=== PATIENT | male | born 1950 | race Caucasian/White ===

== ENCOUNTER 2018-03-07 11:13 | Outpatient (CLI) | payer MEDICARE ==
[~2018-03-07 11:13] MED LIST: Iopamidol 370 76% 100 ML VIAL ONE
--- NOTE | 2018-03-07 14:34 | CT ---
ABDOMEN CT WITH AND WITHOUT CONTRAST PELVIC CT WITH AND WITHOUT CONTRAST: Date: 03/07/18 HISTORY: Abdominal aortic aneurysm, without rupture. Follow-up exam. COMPARISON: 08/22/15. TECHNIQUE: CT angiogram of the abdominal aorta is performed with and without contrast. Sagittal and coronal refo rmatted images are submitted for interpretation. FINDINGS: ABDOMEN CT: Lung bases are clear. Normal heart size. No pericardial fluid. There is appropriate arterial phase enhancement of the liver, spleen, pancreas, and right adrenal gla nds. There is fullness of the left adrenal gland, similar to the previous examination. There appears to be a nodular associated with the left adrenal gland measuring 1.5 cm with an attenuation coefficie nt of -3 Hounsfield units. Benign adenoma is favored. Symmetric enhancement of the kidneys. Bilaterally, no obstructive uropathy. No mesenteric mass, lymphadenopathy, free air, or free fluid. No gastrohepatic, retrocrural, or perip ortal lymphadenopathy. Limited evaluation of the alimentary canal by the lack of oral contrast. No evidence of bowel obstruc tion. Ileocecal junction is normal. Normal caliber appendix. Scattered fecal material in a nondistend ed, nondilated colon. Occasional diverticulum. No diverticulitis. PELVIC CT: Mild prostatic hypertrophy. Mild prominence of the urinary bladder mucosa, incompletely evaluated. No pelvic mass, lymphadenopathy, free air, or free fluid. There are no lytic or blastic lesions in the osseous structures. There is postsurgical change with me tallic spacers at the L4-L5 and L5-S1 disc space. Laminectomy defect at L4-L5 and l5-S1. CT ANGIOGRAM: There is atherosclerosis of the visualized aorta. There is dilatation of the infrarenal abdominal aor ta, measuring 4.4 x 4.6 cm. Previously, the aorta measured 4.1 x 3.7 cm. 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 There appears to be mild narrowing of the celiac artery origin. The superior mesenteric artery origin is normal in caliber. There is mild narrowing of the proximal to mid superior mesenteric artery due to atherosclerotic disease. Both renal artery ostia appear to be patent. Note, there is a small acces tita right renal artery. There is mild narrowing of the suprarenal abdominal aorta due to atheroscler otic disease. Aortic bifurcation of visualized iliac arteries demonstrate atherosclerosis without significant steno sis. IMPRESSION: 1. Interval increase in size of aneurysmal abdominal aorta. 2. Mild narrowing of the suprarenal abdominal aorta due to atherosclerotic disease. POS: [facility]
== END 2018-03-07 11:14 | disposition home or self-care (01) ==
LOC: CT 11:13
PROVIDERS: ATTEND Thoracic Surgery (Cardiothoracic Vascular Surgery)
DX: I71.4 Abdominal aortic aneurysm, without rupture (principal); I70.0 Atherosclerosis of aorta
CPT/HCPCS: 74174; 82565

== ENCOUNTER 2018-04-05 11:57 | Outpatient (CLI) | payer MEDICARE ==
[2018-04-05 13:07] LABS: Mean Corpuscular HGB CONC 34.3 g/dL (32.0-36.0); Mean Corpuscular Hemoglobin 31.5 pg (27.0-31.0); Mean Corpuscular Volume 91.8 fL (78.0-98.0); Platelet Count 276 thou/uL (130-400); RBC Distribution Width 11.3 % (11.5-14.5); Red Blood Cell (RBC) Count 4.44 mill/uL (4.70-6.10); White Blood Cell (WBC) Count 9.3 thou/uL (4.8-10.8)
[2018-04-05 13:34] LABS: Anion Gap 15 mmol/L (10-20); BUN (Urea Nitrogen) 14 mg/dL (8.4-25.7); Calc. Creatinine Clearance 0 mL/min (70-130); Calcium 10.4 mg/dL (7.8-10.44); Carbon Dioxide 20 mmol/L (23-31); Chloride 105 mmol/L (98-107); Estimated GFR-MDRD 79; Glucose 138 mg/dL (80-115); Potassium 4.6 mmol/L (3.5-5.1); Sodium 135 mmol/L (136-145)
--- NOTE | 2018-04-06 08:01 | EKG ---
Test Reason : Blood Pressure : / mmHG Vent. Rate : 059 BPM Atrial Rate : 059 BPM P-R Int : 158 ms QRS Dur : 096 ms QT Int : 408 ms P-R-T Axes : 002 063 046 degrees QTc Int : 403 ms Sinus bradycardia Possible Inferior infarct , age undetermined Nonspecific ST abnormality Abnormal ECG When compared with ECG of 28-DEC-2007 06:40, Borderline criteria for Inferior infarct are now Present Confirmed by DR. Daniel DENG ([id number]) on 04/06/2018 8:00:56 AM Referred By: GRAYSON Confirmed By:DR. Daniel DENG
== END 2018-04-05 11:58 | disposition home or self-care (01) ==
LOC: LABBT 11:57
PROVIDERS: ATTEND Thoracic Surgery (Cardiothoracic Vascular Surgery)
DX: Z01.818 Encounter for other preprocedural examination (principal); I71.4 Abdominal aortic aneurysm, without rupture
CPT/HCPCS: 80048; 85027; 86850; 86900; 86901; 93005; 93010

== ENCOUNTER 2018-04-08 20:27 | Emergency (ER) | payer MEDICARE ==
[2018-04-08] MEDS ORDERED: Ondansetron HCl/PF 4 MG/2 ML Vial ONE ×2 (20:37→22:30)
[2018-04-08 20:52] LABS: #Lymphocytes 1.9 thou/uL (1.20-3.40); #Monocytes 1.9 thou/uL (0.11-0.59); #Neutrophils 11.7 thou/uL (1.40-6.50); %Basophils 0.2 % (0.0-1.0); %Eosinophils 0.2 % (0.0-10.0); %Monocytes 12.1 % (0.0-10.0); %Neutrophils 75.6 % (42.0-75.0); Hemoglobin 12.3 g/dL (14.0-18.0); Mean Corpuscular Hemoglobin 32.8 pg (27.0-31.0); Mean Corpuscular Volume 91.2 fL (78.0-98.0); Mean Platelet Volume 6.9 fL (7.4-10.4); Platelet Count 197 thou/uL (130-400); RBC Distribution Width 11.2 % (11.5-14.5); Red Blood Cell (RBC) Count 3.76 mill/uL (4.70-6.10); White Blood Cell (WBC) Count 15.5 thou/uL (4.8-10.8)
--- NOTE | 2018-04-08 21:14 | CT ---
CT ABDOMEN AND PELVIS WITH IV CONTRAST 04/08/18 HISTORY: Abdominal pain. COMPARISON: 04/06/18. FINDINGS: Lung bases are clear. The liver, spleen, kidneys and adrenal glands are unremarkable. Small amount of dystrophic calcification at the pancreas is unchanged. Aortoiliac stent is in place without evidence of complication. Good arterial flow. Gas within the urinary bladder is likely related to recent catheterization. Lack of oral contrast [place] its evaluation of the bowel. No evidence of bowel obstruction. IMPRESSION: Aortoiliac stent is in good position without evidence of complication. Findings are stable. POS: [facility]
[2018-04-08 21:16] LABS: ALT (SGPT) 17 U/L (8-55); AST (SGOT) 24 U/L (5-34); Albumin 4.5 g/dL (3.4-4.8); Alkaline Phosphatase 91 U/L (40-150); Anion Gap 17 mmol/L (10-20); BUN (Urea Nitrogen) 7 mg/dL (8.4-25.7); Calc. Creatinine Clearance 0 mL/min (70-130); Calcium 9.3 mg/dL (7.8-10.44); Carbon Dioxide 19 mmol/L (23-31); Chloride 102 mmol/L (98-107); Estimated GFR-MDRD Greater than 90; Globulin 3.4 g/dL (2.4-3.5); Glucose 156 mg/dL (80-115); Potassium 3.5 mmol/L (3.5-5.1); Protein, Total 7.9 g/dL (5.8-8.1); Sodium 134 mmol/L (136-145)
[2018-04-08 21:20] LABS: CKMB 2.2 ng/mL (0-6.6); Troponin I 0.013 ng/mL (< 0.028)
[2018-04-08] MEDS ORDERED: hydrALAZINE 20 MG/ML VIAL ONE (21:54)
[2018-04-08] MEDS ORDERED: HYDROcodone/Acetaminophen 10/325 mg Tablet ONE (22:30)
== END 2018-04-08 22:43 | disposition home or self-care (01) ==
LOC: ERS 20:27
DX: R10.9 Unspecified abdominal pain (principal); I10 Essential (primary) hypertension; E78.5 Hyperlipidemia, unspecified; F17.210 Nicotine dependence, cigarettes, uncomplicated; Z79.899 Other long term (current) drug therapy; Z79.82 Long term (current) use of aspirin
CPT/HCPCS: 74177; 80053; 82553; 83605; 84484; 85025; 93005; 96361; 96374; 96375; J0360; J2270; J2405